=== PATIENT | male | born 1970 | race Two or more races ===

== ENCOUNTER 2019-10-11 14:15 | Inpatient (IN) | payer MEDICAID ==
[~2019-10-11] VITALS: Ht 180.3 cm; Wt 103.0 kg
[2019-10-11] MEDS ORDERED: SODIUM CHLORIDE 0.9% 1,000 ML IV ONE (14:42)
--- NOTE | 2019-10-11 14:42 | NUR ---
PT SITTING ON SIDE OF GURNEY, EMESIS BAG IN HAND. STATES VOMITING STARTED YESTERDAY, ABD PAIN "FROM THROWING UP". DENIES FEVER, DIARRHEA, CONSTIPATION. LST ORAL INTAKE: "DAYS" ANSWERING IN SHORT, CLIPPED REPONSES. A&OX4, RESP EVEN & UNLABORED, SPEECH CLEAR, SKIN WNL.
[2019-10-11] MEDS ORDERED: CHLO25TA PO (14:51)
[2019-10-11] MEDS ORDERED: METFORMIN (14:51)
[2019-10-11] MEDS ORDERED: [UNRECOGNIZED DRUG - OTHER] (14:51)
[2019-10-11] MEDS ORDERED: AMLO-150 PO (14:51)
[2019-10-11] MEDS ORDERED: CARV12.52 PO (14:51)
[2019-10-11] MEDS ORDERED: LOSA25TA25 PO (14:51)
--- NOTE | 2019-10-11 14:51 | NUR ---
TO XR PER JOHN
[2019-10-11] MEDS ORDERED: SODIUM CHLORIDE 0.9% 1,000ML IVBOLUS ONE (15:00)
[2019-10-11] MEDS ORDERED: PROMETHAZINE 25 MG/ML, 1ML IM ONE (15:00)
[2019-10-11] MEDS ORDERED: SODIUM CHLORIDE FLUSH 10ML SYR IVF ONE (15:00)
[2019-10-11] MEDS ORDERED: ONDANSETRON 2MG/ML, 2ML IVPush ONE (15:00)
--- NOTE | 2019-10-11 15:14 | NUR ---
PIV INITIATED. EKG DONE. CARDIAC & VS MONITORING EQUIPMENT APPLIED. PT REPORTS HE WAS AT [facility] YESTERDAY FOR SIMILAR SX "AND THEY KICKED ME OUT". Addendum: 10/11/19 at 1514 by LISSET CLONODINE PATCH ON RT UPPER CHEST
[2019-10-11] MEDS ORDERED: CLONIDINE TP (15:16)
[2019-10-11 15:30] LABS: BASOPHILS # (AUTO) 0.05 x10^3/uL (0-0.1); BASOPHILS % (AUTO) 0 % (0-1); EOSINOPHILS % (AUTO) 0 % (1-7); LYMPHOCYTES # (AUTO) 1.41 x10^3/uL (1-3.4); LYMPHOCYTES % (AUTO) 9 % (22-44); MD NO; MEAN CORPUSCULAR HEMOGLOBIN 31.3 pg (27.5-34.5); MEAN CORPUSCULAR HGB CONC 33.5 g/dL (33.2-36.2); MEAN CORPUSCULAR VOLUME 93.3 fL (81-97); MEAN PLATELET VOLUME 7.6 fL (7.4-10.4); MONOCYTES # (AUTO) 0.81 x10^3/uL (0.2-0.8); MONOCYTES % (AUTO) 5 % (2-9); NEUTROPHILS # (AUTO) 13.05 x10^3/uL (1.8-6.8); NEUTROPHILS % (AUTO) 85 % (42-75); PLATELET COUNT 329 x10^3/uL (130-400); RED CELL DISTRIBUTION WIDTH 13.1 % (9.4-14.8)
[2019-10-11 15:42] LABS: ALANINE AMINOTRANSFERASE 38 U/L (12-78); ALBUMIN 4.2 g/dL (3.4-5.0); ANION GAP 9 mmol/L (5-15); CALCIUM 9.2 mg/dL (8.5-10.1); CHLORIDE 100 mmol/L (98-107); CREATININE 0.77 mg/dL (0.7-1.3)
[2019-10-11 15:44] LABS: ALKALINE PHOSPHATASE 76 U/L (45-117); BILIRUBIN,TOTAL 0.9 mg/dL (0.2-1.0); TOTAL PROTEIN 8.4 g/dL (6.4-8.2)
[2019-10-11] MEDS ORDERED: ONDANSETRON 2MG/ML, 2ML ONE (15:50)
[2019-10-11] MEDS ORDERED: PROMETHAZINE 25 MG/ML, 1ML ONE (15:50)
--- NOTE | 2019-10-11 15:56 | NUR ---
PT DENIES URGE TO VOID, REFUSES CATHETER SPECIMEN.
--- NOTE | 2019-10-11 15:58 | NUR ---
BP 198/114. ERP WILL BE NOTIFIED. IV INFUSING W-O, SITE PATENT. PT STILL REPLYING IN CLIPPED RESPONSES
--- NOTE | 2019-10-11 16:13 | NUR ---
VOIDED URINE SPECIMEN PROVIDED: SENT TO LAB.
[2019-10-11 16:23] LABS: CULTURE INDICATED? NO; MICROSCOPIC AUTO
--- NOTE | 2019-10-11 16:48 | NUR ---
DR RAMAN BS
[2019-10-11] MEDS ORDERED: DEXTROSE 4 GM TAB.CHEW PO PRN (17:00)
[2019-10-11] MEDS ORDERED: IBUPROFEN 600 MG TABLET PO PRN (17:00)
[2019-10-11] MEDS ORDERED: CAPTOPRIL 12.5 MG TABLET PO PRN (17:00)
[2019-10-11] MEDS ORDERED: hydrALAzine 20 MG/ML, 1ML IV ONE (17:00)
[2019-10-11] MEDS ORDERED: KETOROLAC 30 MG/1 ML IV PRN (17:00)
[2019-10-11] MEDS ORDERED: OXYcodone IR 5MG TABLET PO PRN (17:00)
[2019-10-11] MEDS ORDERED: hydrALAzine 20 MG/ML, 1ML IVPush PRN (17:00)
[2019-10-11] MEDS ORDERED: ACETAMINOPHEN 325 MG TABLET PO PRN (17:00)
[2019-10-11] MEDS ORDERED: GLUCAGON 1 MG IM PRN (17:00)
[2019-10-11] MEDS ORDERED: DEXTROSE 50%, 50ML SYRINGE IVPush PRN (17:00)
[2019-10-11] MEDS ORDERED: GABAPENTIN 300 MG CAPSULE PO PRN (17:00)
[2019-10-11] MEDS ORDERED: morphine SULFATE 10 MG/ML, 1ML IVPush PRN (17:00)
[2019-10-11] MEDS ORDERED: ONDANSETRON 2MG/ML, 2ML IVPush PRN (17:00)
[2019-10-11] MEDS ORDERED: BACLOFEN 10 MG TABLET PO PRN (17:00)
[2019-10-11] MEDS ORDERED: REGLAN (17:09)
[2019-10-11] MEDS ORDERED: TAMSULOSIN 0.4 MG CAP.ER.24H ONE (17:16)
[2019-10-11] MEDS ORDERED: NS + 20MEQ KCL 1,000 ML IV ONE (17:17)
[2019-10-11] MEDS ORDERED: POLYETHYLENE GLYCOL 17 GM PACKET ONE (17:18)
[2019-10-11] MEDS ORDERED: hydrALAzine 20 MG/ML, 1ML ONE (17:19)
[2019-10-11] MEDS: TAMSULOSIN 0.4 MG CAP.ER.24H PO SCH (17:28)
[2019-10-11] MEDS ORDERED: POLYETHYLENE GLYCOL 17 GM PACKET PO SCH (17:30)
[2019-10-11] MEDS ORDERED: LORazepam 2 MG/ML, 1ML IVPush PRN (17:30)
--- NOTE | 2019-10-11 17:30 | NUR ---
APRESOLINE GIVEN PER EMAR. PT REFUSING FLOMAX AND MIRALAX.
--- NOTE | 2019-10-11 17:46 | NUR ---
CALLED UNIT TO GIVE REPORT; ON HOLD X 5 MINS; RECEIVING RN NOT AVAILABLE.
[2019-10-11 17:49] LABS: AMPHETAMINE SCREEN, URINE Negative (Negative); BARBITURATE SCREEN, URINE Negative (Negative); BENZODIAZEPINE SCREEN, URINE Negative (Negative); CANNABINOID SCREEN, URINE Negative (Negative); COCAINE SCREEN, URINE Negative (Negative); METHADONE SCREEN, URINE Negative (Negative); OPIATE SCREEN, URINE Negative (Negative)
--- NOTE | 2019-10-11 18:02 | NUR ---
PT REPORT TO LV DEMARCO FOR ROOM [id number]
--- NOTE | 2019-10-11 18:08 | NUR ---
20MEQ KCL IN SALINE BAG SENT TO FLOOR W/ PT
[2019-10-11 18:35] VITALS: BP 189/93
[2019-10-11 20:56] VITALS: BP 192/102
[2019-10-11] MEDS: POLYETHYLENE GLYCOL 17 GM PACKET PO SCH (21:00)
[2019-10-11] MEDS: INSULIN LISPRO 100 UNITS/ML, PEN SQ-INSULIN SCH (21:00)
[2019-10-11] MEDS: NS + 20MEQ KCL 1,000 ML IV SCH (21:00)
[2019-10-11] MEDS: FAMOTIDINE 20 MG/2 ML IVPush SCH (21:00)
[2019-10-11] MEDS: CARVEDILOL 25 MG TABLET PO SCH (21:00)
[2019-10-11] MEDS: SODIUM CHLORIDE FLUSH 10ML SYR IVF SCH (21:19)
[2019-10-11 23:17] VITALS: BP_SYST 190; BP_SYST 206; BP_DIAS 105; BP_DIAS 113
[2019-10-12 01:18] VITALS: BP_SYST 169; BP_SYST 200; BP_DIAS 113; BP_DIAS 94
[2019-10-12 01:50] VITALS: BP_SYST 179; BP_SYST 185; BP_DIAS 108; BP_DIAS 97
[2019-10-12] MEDS ORDERED: hydrALAzine 20 MG/ML, 1ML IVPush PRN (02:30)
[2019-10-12 04:09] VITALS: BP_SYST 163; BP_SYST 176; BP_DIAS 101; BP_DIAS 95
[2019-10-12] MEDS: NS + 20MEQ KCL 1,000 ML IV SCH ×2 (05:45→13:45)
[2019-10-12 06:03] LABS: BASOPHILS # (AUTO) 0.02 x10^3/uL (0-0.1); BASOPHILS % (AUTO) 0 % (0-1); EOSINOPHILS % (AUTO) 0 % (1-7); LYMPHOCYTES # (AUTO) 1.25 x10^3/uL (1-3.4); LYMPHOCYTES % (AUTO) 10 % (22-44); MD NO; MEAN CORPUSCULAR HEMOGLOBIN 31.2 pg (27.5-34.5); MEAN CORPUSCULAR HGB CONC 33.1 g/dL (33.2-36.2); MEAN CORPUSCULAR VOLUME 94.2 fL (81-97); MEAN PLATELET VOLUME 7.4 fL (7.4-10.4); MONOCYTES # (AUTO) 0.87 x10^3/uL (0.2-0.8); MONOCYTES % (AUTO) 7 % (2-9); NEUTROPHILS % (AUTO) 83 % (42-75); PLATELET COUNT 299 x10^3/uL (130-400); RED BLOOD COUNT 4.05 x10^6/uL (4.38-5.82); RED CELL DISTRIBUTION WIDTH 12.9 % (9.4-14.8)
[2019-10-12 06:18] LABS: CHLORIDE 107 mmol/L (98-107)
[2019-10-12 06:29] LABS: ALANINE AMINOTRANSFERASE 30 U/L (12-78); ALBUMIN 3.5 g/dL (3.4-5.0); ALKALINE PHOSPHATASE 62 U/L (45-117); ANION GAP 9 mmol/L (5-15); BILIRUBIN,TOTAL 0.6 mg/dL (0.2-1.0); CALCIUM 8.1 mg/dL (8.5-10.1); CREATININE 0.71 mg/dL (0.7-1.3); TOTAL PROTEIN 7.1 g/dL (6.4-8.2)
[2019-10-12 06:30] VITALS: BP 147/88
[2019-10-12] MEDS: INSULIN LISPRO 100 UNITS/ML, PEN SQ-INSULIN SCH ×4 (07:00→21:00)
[2019-10-12] MEDS: CARVEDILOL 25 MG TABLET PO SCH (09:00)
[2019-10-12] MEDS: TAMSULOSIN 0.4 MG CAP.ER.24H PO SCH (09:00)
[2019-10-12] MEDS: POLYETHYLENE GLYCOL 17 GM PACKET PO SCH (09:00)
[2019-10-12] MEDS ORDERED: METOCLOPRAMIDE 5 MG/ML, 2ML IVPush SCH (09:00)
[2019-10-12] MEDS: AMLODIPINE 5 MG TABLET PO SCH (09:00)
[2019-10-12] MEDS: LOSARTAN 50MG TABLET PO SCH (09:00)
[2019-10-12] MEDS: METOCLOPRAMIDE 5 MG/ML, 2ML IVPush PRN ×2 (09:24→16:08)
[2019-10-12] MEDS: FAMOTIDINE 20 MG/2 ML IVPush SCH (09:24)
[2019-10-12] MEDS: SODIUM CHLORIDE FLUSH 10ML SYR IVF SCH (09:26)
[2019-10-12] MEDS ORDERED: POTASSIUM CHLORIDE 40 MEQ in SODIUM CHLORIDE 0.9% 500 ML IV ONE (11:00)
[2019-10-12 12:38] VITALS: BP 139/87
[2019-10-12] MEDS ORDERED: CAPTOPRIL 12.5 MG TABLET PO PRN (13:00)
[2019-10-12 19:51] VITALS: BP 130/81
[2019-10-13] MEDS: FAMOTIDINE 20 MG/2 ML IVPush SCH ×2 (00:45→09:32)
[2019-10-13] MEDS: CARVEDILOL 25 MG TABLET PO SCH ×2 (00:45→09:31)
[2019-10-13] MEDS: SODIUM CHLORIDE FLUSH 10ML SYR IVF SCH ×2 (00:45→09:31)
[2019-10-13] MEDS: POLYETHYLENE GLYCOL 17 GM PACKET PO SCH ×2 (00:45→09:32)
[2019-10-13 01:05] VITALS: BP 138/75
[2019-10-13] MEDS: NS + 20MEQ KCL 1,000 ML IV SCH ×3 (01:05→16:00)
[2019-10-13 05:14] LABS: BASOPHILS # (AUTO) 0.09 x10^3/uL (0-0.1); BASOPHILS % (AUTO) 1 % (0-1); EOSINOPHILS # (AUTO) 0.03 x10^3/uL (0-0.4); EOSINOPHILS % (AUTO) 0 % (1-7); LYMPHOCYTES # (AUTO) 2.47 x10^3/uL (1-3.4); LYMPHOCYTES % (AUTO) 28 % (22-44); MD NO; MEAN CORPUSCULAR HEMOGLOBIN 31.1 pg (27.5-34.5); MEAN CORPUSCULAR VOLUME 94.1 fL (81-97); MEAN PLATELET VOLUME 7.3 fL (7.4-10.4); MONOCYTES # (AUTO) 0.87 x10^3/uL (0.2-0.8); MONOCYTES % (AUTO) 10 % (2-9); NEUTROPHILS # (AUTO) 5.39 x10^3/uL (1.8-6.8); NEUTROPHILS % (AUTO) 61 % (42-75); PLATELET COUNT 296 x10^3/uL (130-400); RED BLOOD COUNT 3.69 x10^6/uL (4.38-5.82); RED CELL DISTRIBUTION WIDTH 13.2 % (9.4-14.8)
[2019-10-13 05:24] LABS: ANION GAP 3 mmol/L (5-15); CALCIUM 7.8 mg/dL (8.5-10.1); CHLORIDE 108 mmol/L (98-107)
[2019-10-13 05:26] LABS: CREATININE 0.59 mg/dL (0.7-1.3)
[2019-10-13] MEDS: INSULIN LISPRO 100 UNITS/ML, PEN SQ-INSULIN SCH ×2 (08:18→11:26)
[2019-10-13] MEDS: AMLODIPINE 5 MG TABLET PO SCH (09:31)
[2019-10-13] MEDS: TAMSULOSIN 0.4 MG CAP.ER.24H PO SCH (09:31)
[2019-10-13 09:34] VITALS: BP 151/93
[2019-10-13] MEDS: LOSARTAN 50MG TABLET PO SCH (10:24)
[2019-10-13] MEDS ORDERED: POTASSIUM PHOSPHATE 44 MEQ in SODIUM CHLORIDE 0.9% 500 ML IV ONE (11:00)
[2019-10-13] MEDS ORDERED: INSU100V8 SQ (11:52)
[2019-10-13 13:39] VITALS: BP 132/80
[2019-10-13] MEDS ORDERED: METO5TAB57 PO (16:16)
[2019-10-13] MEDS ORDERED: POLY17PO5 PO (16:21)
== END 2019-10-13 17:05 | disposition home or self-care (01) | DRG 249 ==
LOC: ED 16:53 → EDIP 16:54 → ED 17:19 → 4EST 18:05 → DCLOUNGE 10-13 16:51
PROVIDERS: ADMIT Hospitalist; ATTEND Internal Medicine
DX: R11.15 Cyclical vomiting syndrome unrelated to migraine (principal); R65.10 Systemic inflammatory response syndrome (SIRS) of non-infectious origin without acute organ dysfunction; I10 Essential (primary) hypertension; E11.9 Type 2 diabetes mellitus without complications; E87.6 Hypokalemia; K59.00 Constipation, unspecified; E86.0 Dehydration; Z79.4 Long term (current) use of insulin; Z80.9 Family history of malignant neoplasm, unspecified; Z83.3 Family history of diabetes mellitus
CPT/HCPCS: 36415; 74021; 96361; 96372; 96374; 99285; J3490; 80048; 80053; 80307; 81001; 82962; 83690; 83735; 84100; 85025; 87040; 93005; G0378; J2405; J2550; J3480; J0360; J1815; J2060; J2765; J7030; J7040

== ENCOUNTER 2019-10-31 11:27 | Inpatient (IN) | payer MEDICAID ==
[2019-10-31] VITALS (7 sets, daily range): BP systolic 146–209; BP diastolic 77–112
[~2019-10-31] VITALS: Ht 180.3 cm; Wt 103.2 kg
[~2019-10-31 11:27] MED LIST: AMLO-150 PO; CARV12.52 PO; CHLO25TA PO; CLONIDINE TP; INSU100V8 SQ; LOSA25TA25 PO; METFORMIN; METO5TAB57 PO; POLY17PO5 PO; REGLAN; [UNRECOGNIZED DRUG - OTHER]
[2019-10-31] MEDS ORDERED: ONDANSETRON 2MG/ML, 2ML IVPush ONE (12:30)
[2019-10-31] MEDS ORDERED: SODIUM CHLORIDE FLUSH 10ML SYR IVF ONE (12:30)
[2019-10-31] MEDS ORDERED: PANTOPRAZOLE 40 MG IV ONE (12:47)
[2019-10-31] MEDS ORDERED: ONDANSETRON 2MG/ML, 2ML ONE (12:47)
[2019-10-31] MEDS ORDERED: PROMETHAZINE 25 MG/ML, 1ML ONE ×2 (12:47→18:14)
[2019-10-31] MEDS ORDERED: PROMETHAZINE 25 MG/ML, 1ML IM ONE (13:00)
[2019-10-31] MEDS ORDERED: SODIUM CHLORIDE 0.9% 1,000ML IVBOLUS ONE (13:00)
[2019-10-31] MEDS ORDERED: PANTOPRAZOLE 40 MG IV IVPush ONE (13:00)
[2019-10-31 13:01] LABS: BASOPHILS # (AUTO) 0.03 x10^3/uL (0-0.1); BASOPHILS % (AUTO) 0 % (0-1); EOSINOPHILS # (AUTO) 0.07 x10^3/uL (0-0.4); EOSINOPHILS % (AUTO) 1 % (1-7); LYMPHOCYTES # (AUTO) 1.54 x10^3/uL (1-3.4); LYMPHOCYTES % (AUTO) 15 % (22-44); MD NO; MEAN CORPUSCULAR HEMOGLOBIN 31.8 pg (27.5-34.5); MEAN CORPUSCULAR HGB CONC 33.1 g/dL (33.2-36.2); MEAN CORPUSCULAR VOLUME 96.1 fL (81-97); MEAN PLATELET VOLUME 7.7 fL (7.4-10.4); MONOCYTES # (AUTO) 0.33 x10^3/uL (0.2-0.8); MONOCYTES % (AUTO) 3 % (2-9); NEUTROPHILS # (AUTO) 8.55 x10^3/uL (1.8-6.8); NEUTROPHILS % (AUTO) 81 % (42-75); PLATELET COUNT 382 x10^3/uL (130-400); RED BLOOD COUNT 4.72 x10^6/uL (4.38-5.82); RED CELL DISTRIBUTION WIDTH 12.8 % (9.4-14.8)
[2019-10-31 13:09] LABS: ALANINE AMINOTRANSFERASE 30 U/L (12-78); ALBUMIN 4.4 g/dL (3.4-5.0); ANION GAP 9 mmol/L (5-15); CALCIUM 10.2 mg/dL (8.5-10.1); CHLORIDE 102 mmol/L (98-107); CREATININE 0.95 mg/dL (0.7-1.3)
[2019-10-31 13:11] LABS: ALKALINE PHOSPHATASE 81 U/L (45-117); BILIRUBIN,TOTAL 0.7 mg/dL (0.2-1.0); TOTAL PROTEIN 8.8 g/dL (6.4-8.2)
--- NOTE | 2019-10-31 13:30 | NUR ---
IV ESTABLISHED AND PT MEDICATED PER MAR, IVF INFUSING. PT UNABLE TO PROVIDE URINE SAMPLE AT THIS TIME AND REFUSING STRAIGHT CATH. PA NOTIFIED, OK TO WAIT FOR UA FOR NOW FOR PT TO GET IVF. PT ON MONITOR. CALL LIGHT WITHIN REACH. PT STILL VOMITING EVERY 10-15MIN.
--- NOTE | 2019-10-31 14:00 | NUR ---
PT STILL REFUSING STRAIGHT CATH, NOTIFIED.
[2019-10-31] MEDS ORDERED: METOCLOPRAMIDE 5 MG/ML, 2ML IVPush ONE (14:30)
[2019-10-31] MEDS ORDERED: HALOPERIDOL 5 MG/ML IV ONE (14:30)
[2019-10-31] MEDS ORDERED: HALOPERIDOL 5 MG/ML ONE (14:55)
[2019-10-31] MEDS ORDERED: POLYETHYLENE GLYCOL 17 GM PACKET PO PRN (15:00)
[2019-10-31] MEDS ORDERED: ONDANSETRON 2MG/ML, 2ML IVPush PRN (15:00)
[2019-10-31] MEDS ORDERED: ONDANSETRON ODT 4 MG PO PRN (15:00)
[2019-10-31] MEDS ORDERED: LABETALOL 5MG/ML, 20ML ONE (15:06)
[2019-10-31] MEDS: LABETALOL 5MG/ML, 20ML IVPush PRN ×2 (15:11→21:38)
[2019-10-31 15:14] LABS: FREE T4 (FREE THYROXINE) 1.46 ng/dL (0.76-1.46)
--- NOTE | 2019-10-31 15:15 | NUR ---
IV HALDOL GIVEN PER ORDER. PT STILL VOMITING. ADMITTING MD AT BEDSIDE, TO GIVE LABETALOL AND CLONIDINE. PT UNABLE TO TAKE PO STILL, IV LABETALOL GIVEN. PT TO BE ADMITTED. PT STILL VOMITING EVERY 15MIN
--- NOTE | 2019-10-31 15:16 | NUR ---
URINE WALKED TO LAB
[2019-10-31 15:24] LABS: HEMOGLOBIN A1C 9.4 % (4.2-6.3)
[2019-10-31 15:26] LABS: INTERNATIONAL NORMALIZED RATIO 0.94 (0.93-1.1); PROTHROMBIN TIME 9.9 Seconds (9.6-11.5)
--- NOTE | 2019-10-31 15:26 | NUR ---
REPORT TO ALESSANDRA AWAN
[2019-10-31] MEDS ORDERED: SCOPOLAMINE PATCH, 1.5MG PATCH.TD72 TD ONE (15:30)
[2019-10-31] MEDS ORDERED: ENALAPRILAT 1.25 MG/ML, 2ML IV ONE (15:30)
[2019-10-31] MEDS ORDERED: hydrALAzine 20 MG/ML, 1ML IV PRN ×2 (15:30→19:30)
--- NOTE | 2019-10-31 15:59 | NUR ---
BREAK RN: TRANSFERED TO FLOOR
[2019-10-31 16:09] LABS: MICROSCOPIC NOT IND
[2019-10-31 16:18] LABS: CULTURE INDICATED? NO
[2019-10-31 16:23] LABS: AMPHETAMINE SCREEN, URINE Negative (Negative); BARBITURATE SCREEN, URINE Negative (Negative); BENZODIAZEPINE SCREEN, URINE Negative (Negative); CANNABINOID SCREEN, URINE Negative (Negative); COCAINE SCREEN, URINE Negative (Negative); METHADONE SCREEN, URINE Negative (Negative); OPIATE SCREEN, URINE Negative (Negative)
[2019-10-31] MEDS ORDERED: ENALAPRILAT 1.25 MG/ML, 1ML ONE ×3 (16:26→18:15)
[2019-10-31] MEDS ORDERED: MAGNESIUM SULFATE PMX 2GM/50ML 50 ML IV ONE (17:00)
[2019-10-31] MEDS ORDERED: LORazepam 2 MG/ML, 1ML IVPush PRN (18:00)
[2019-10-31] MEDS: LORazepam 2 MG/ML, 1ML IVPush PRN (18:25)
[2019-10-31] MEDS: ENALAPRILAT 1.25 MG/ML, 2ML IV SCH (18:28)
[2019-10-31] MEDS: D5%-LACTATED RINGERS 1,000 ML IV SCH (18:28)
[2019-10-31] MEDS: PROMETHAZINE 25 MG/ML, 1ML IM PRN ×2 (18:30→23:01)
[2019-10-31] MEDS ORDERED: KETOROLAC 30 MG/1 ML IVPush ONE (19:30)
[2019-10-31] MEDS ORDERED: OMNIPAQUE 350 MG/ML, 100ML BOTTLE ONE (20:34)
[2019-10-31] MEDS: CARVEDILOL 25 MG TABLET PO SCH ×2 (21:00→22:58)
[2019-10-31] MEDS: PANTOPRAZOLE 40 MG IV IVPush SCH (21:10)
[2019-11-01] VITALS (10 sets, daily range): BP systolic 86–119; BP diastolic 56–71
[2019-11-01] MEDS: ENALAPRILAT 1.25 MG/ML, 2ML IV SCH ×5 (00:04→18:30)
[2019-11-01] MEDS: LORazepam 2 MG/ML, 1ML IVPush PRN (00:47)
[2019-11-01] MEDS: INSULIN LISPRO 100 UNITS/ML, PEN SQ-INSULIN SCH ×4 (07:00→21:54)
[2019-11-01] MEDS: LOSARTAN 50MG TABLET PO SCH (08:53)
[2019-11-01] MEDS: SODIUM CHLORIDE FLUSH 10ML SYR IVF SCH ×2 (08:56→21:00)
[2019-11-01] MEDS: PANTOPRAZOLE 40 MG IV IVPush SCH ×2 (08:56→21:54)
[2019-11-01] MEDS ORDERED: DEXTROSE 4 GM TAB.CHEW PO PRN (09:00)
[2019-11-01] MEDS ORDERED: AMLODIPINE 5 MG TABLET PO SCH ×2 (09:00)
[2019-11-01] MEDS ORDERED: GLUCAGON 1 MG IM PRN (09:00)
[2019-11-01] MEDS ORDERED: LOSARTAN 50MG TABLET PO SCH (09:00)
[2019-11-01] MEDS ORDERED: CARVEDILOL 25 MG TABLET PO SCH (09:00)
[2019-11-01] MEDS ORDERED: CHLORTHALIDONE 25 MG TABLET PO SCH ×2 (09:00)
[2019-11-01] MEDS ORDERED: DEXTROSE 50%, 50ML SYRINGE IVPush PRN (09:00)
[2019-11-01 09:19] LABS: ANION GAP 9 mmol/L (5-15); CALCIUM 8.2 mg/dL (8.5-10.1); CHLORIDE 106 mmol/L (98-107); CREATININE 0.95 mg/dL (0.7-1.3)
[2019-11-01 09:20] LABS: ALANINE AMINOTRANSFERASE 22 U/L (12-78); ALBUMIN 3.1 g/dL (3.4-5.0)
[2019-11-01 09:31] LABS: ALKALINE PHOSPHATASE 57 U/L (45-117); BILIRUBIN,TOTAL 0.4 mg/dL (0.2-1.0); TOTAL PROTEIN 6.5 g/dL (6.4-8.2)
[2019-11-01 09:46] LABS: BASOPHILS # (AUTO) 0.02 x10^3/uL (0-0.1); BASOPHILS % (AUTO) 0 % (0-1); EOSINOPHILS # (AUTO) 0.01 x10^3/uL (0-0.4); EOSINOPHILS % (AUTO) 0 % (1-7); LYMPHOCYTES # (AUTO) 2.21 x10^3/uL (1-3.4); LYMPHOCYTES % (AUTO) 19 % (22-44); MD NO; MEAN CORPUSCULAR HEMOGLOBIN 30.9 pg (27.5-34.5); MEAN CORPUSCULAR HGB CONC 32.5 g/dL (33.2-36.2); MEAN CORPUSCULAR VOLUME 95.1 fL (81-97); MEAN PLATELET VOLUME 7.5 fL (7.4-10.4); MONOCYTES % (AUTO) 10 % (2-9); NEUTROPHILS # (AUTO) 8.42 x10^3/uL (1.8-6.8); NEUTROPHILS % (AUTO) 71 % (42-75); PLATELET COUNT 333 x10^3/uL (130-400); RED BLOOD COUNT 3.92 x10^6/uL (4.38-5.82); RED CELL DISTRIBUTION WIDTH 13.4 % (9.4-14.8)
[2019-11-01] MEDS: D5%-LACTATED RINGERS 1,000 ML IV SCH ×2 (11:10→21:55)
[2019-11-02] MEDS: ENALAPRILAT 1.25 MG/ML, 2ML IV SCH (00:30)
[2019-11-02 00:39] VITALS: BP 102/63
[2019-11-02 05:16] VITALS: BP 119/75
[2019-11-02] MEDS: ENALAPRILAT 1.25 MG/ML, 1ML IV SCH ×2 (05:16→12:30)
[2019-11-02 05:36] LABS: CHLORIDE 109 mmol/L (98-107)
[2019-11-02 05:37] LABS: BASOPHILS # (AUTO) 0.02 x10^3/uL (0-0.1); BASOPHILS % (AUTO) 0 % (0-1); EOSINOPHILS # (AUTO) 0.12 x10^3/uL (0-0.4); EOSINOPHILS % (AUTO) 2 % (1-7); LYMPHOCYTES # (AUTO) 2.34 x10^3/uL (1-3.4); LYMPHOCYTES % (AUTO) 33 % (22-44); MD NO; MEAN CORPUSCULAR HEMOGLOBIN 31.6 pg (27.5-34.5); MEAN CORPUSCULAR HGB CONC 32.8 g/dL (33.2-36.2); MEAN CORPUSCULAR VOLUME 96.4 fL (81-97); MEAN PLATELET VOLUME 7.6 fL (7.4-10.4); MONOCYTES # (AUTO) 0.63 x10^3/uL (0.2-0.8); MONOCYTES % (AUTO) 9 % (2-9); NEUTROPHILS # (AUTO) 4.03 x10^3/uL (1.8-6.8); NEUTROPHILS % (AUTO) 57 % (42-75); PLATELET COUNT 272 x10^3/uL (130-400); RED BLOOD COUNT 3.59 x10^6/uL (4.38-5.82)
[2019-11-02 05:44] LABS: ALANINE AMINOTRANSFERASE 20 U/L (12-78); ALBUMIN 2.9 g/dL (3.4-5.0); ALKALINE PHOSPHATASE 51 U/L (45-117); ANION GAP 4 mmol/L (5-15); BILIRUBIN,TOTAL 0.7 mg/dL (0.2-1.0); CALCIUM 8.1 mg/dL (8.5-10.1); CREATININE 0.59 mg/dL (0.7-1.3)
[2019-11-02 06:37] VITALS: BP 127/79
[2019-11-02] MEDS: INSULIN LISPRO 100 UNITS/ML, PEN SQ-INSULIN SCH ×2 (08:44→12:14)
[2019-11-02] MEDS: LOSARTAN 50MG TABLET PO SCH (08:44)
[2019-11-02] MEDS: PANTOPRAZOLE 40 MG IV IVPush SCH (08:44)
[2019-11-02] MEDS: SODIUM CHLORIDE FLUSH 10ML SYR IVF SCH (08:45)
[2019-11-02] MEDS: D5%-LACTATED RINGERS 1,000 ML IV SCH (09:17)
[2019-11-02 12:54] VITALS: BP 95/56
== END 2019-11-02 14:57 | disposition home or self-care (01) | DRG 249 ==
LOC: ED 14:51 → EDIP 14:52 → ED 15:39 → 4WST 15:57 → DCLOUNGE 11-02 14:49
PROVIDERS: ADMIT Hospitalist; ATTEND Hospitalist
DX: R11.15 Cyclical vomiting syndrome unrelated to migraine (principal); E87.2 Acidosis; E11.65 Type 2 diabetes mellitus with hyperglycemia; E83.51 Hypocalcemia; D72.829 Elevated white blood cell count, unspecified; E86.0 Dehydration; I10 Essential (primary) hypertension; I16.9 Hypertensive crisis, unspecified; K59.00 Constipation, unspecified; Z80.9 Family history of malignant neoplasm, unspecified; Z83.3 Family history of diabetes mellitus
CPT/HCPCS: 36415; 74018; 74220; 96372; 96374; 96375; 99285; J7121; 71250; 74177; 80053; 80307; 81003; 82962; 83036; 83605; 83690; 83735; 84100; 84439; 84443; 85025; 85610; 93005; G0378; J1885; J2405; J2550; Q9967; C9113; J0360; J1630; J1815; J2060; J2765; J3475; J7030